=== PATIENT | female | born 1990 | race Hispanic/Latino ===

== ENCOUNTER 2017-12-07 16:33 | Inpatient (IN) | payer BC ==
[~2017-12-07] VITALS: Ht 160 cm; Wt 82.5 kg
[2017-12-07 17:50] LABS: HEMATOCRIT 35.3 % (36.0-46.0); HEMOGLOBIN 12.4 G/DL (11.9-15.5); MCH 30.6 PG (29.0-34.0); MCHC 35.1 G/DL (30.0-36.0); MCV 87.2 FL (83-99); PLATELET COUNT 261 K/uL (156-360); RBC DIS.WIDTH-CV 12.1 % (11.8-14.6); RBC DIS.WIDTH-SD 38.7 % (39-53); RED BLOOD COUNT 4.05 M/uL (3.80-5.20); WHITE BLOOD COUNT 10.3 K/uL (4.1-10.2)
[2017-12-07 17:59] LABS: CHLORIDE 106 mEq/L (99-109); POTASSIUM 3.5 mEq/L (3.7-5.4); SODIUM 140 mEq/L (136-147)
[2017-12-07 18:00] LABS: GLUCOSE 91 mg/dL (70-99)
[2017-12-07 18:04] LABS: CREATININE 0.7 mg/dL (0.6-1.3); GFR ESTIMATE (CALCULATED) > 59 mL/min/
[2017-12-07 18:05] LABS: UREA NITROGEN (BUN) 8 mg/dL (9-23)
[2017-12-07 18:12] LABS: QUANTITATIVE HCG 1720.3 MIU/ML
[2017-12-07] MEDS ORDERED: TYLENOL EXTRA500 MG PO (19:00)
[2017-12-07] MEDS ORDERED: DAILY VALUE1 EACH PO (19:01)
[2017-12-07] MEDS ORDERED: IBUPROFEN800 MG PO (20:59)
[2017-12-07 21:56] VITALS: BP 110/53
== END 2017-12-07 23:30 | disposition home or self-care (01) | DRG 770 ==
LOC: EME 16:33 → SDC 20:04 → ENRESERV 20:52 → 2SOUTH 20:55 → ENRESERV 21:00 → 2EASTP 21:26
PROVIDERS: Nurse Practitioner Family
PROC: 10D17ZZ Extraction of Products of Conception, Retained, Via Natural or Artificial Opening (ICD-10-PCS; principal; 2017-12-07)
DX: O03.4 Incomplete spontaneous abortion without complication (principal)
CPT/HCPCS: 80048; 81003; 84702; 85027; 86850; 86900; 86901; 88305; 99281; 99285; J0330; J1885; J2250; J3010